=== PATIENT | male | born 1945 | race Caucasian/White ===

== ENCOUNTER 2020-11-19 20:46 | Observation (INO) ==
--- NOTE | 2020-11-19 21:27 | DR.EXTPAIN ---
HPI Time seen Time Seen by Provider: 11/19/20 21:00 PCP Primary Care Physician: DR.MISTY HERNANDEZ HPI Comment HPI Comment: 74 yo m w/ pmh htn and dmII presents w/ left sided leg weakness onset 11 hrs [employer]. Patient reports approx 11 hr hx of gradual onset left leg weakness. Difficulty ambulating secondary to this weakness. No ac use at home. No hx of trauma/ injury. Denies hx of prev cva/ tia. Denies WALKER, visual/ speech changes, other numbness/ weakness, aphasia. n/v, CP/ sob, f/c. Complaint/Symptoms Chief Complaint:: UNABLE TO WALK STRAIGHT, STUMBING, PAIN TO LEFT NECK Nurses notes reviewed Nurses Notes Review: Yes Source History Provided: Patient and Significant Other Mode of arrival Mode of Arrival: Ambulatory Timing Onset of Chief Complaint: 11/19/20 Context History of: None PMH PMH Past Medical History: Yes Past Medical History: Diabetes and Hypertension Past Surgical History: No Family History History of Family Medical Conditions: Yes Family Medical History: Diabetes Mellitus, Cancer and Hypertension Family Medical History Comment: MOTHER-BREAST CANCER SISTER-BREAST CA Social History Does patient currently use any type of tobacco product: No Have you used tobacco products in the last 12 months: No Type of Tobacco Use: None Does any household member use tobacco: No Alcohol Use: None Do you use any recreational Drugs:: No Lives With: Family Lives Where: Home Infectious screening In the last 2 months have you had wt loss of >10#?: NO Have you had fever, night sweats or hemotysis?: No Have you traveled outside the country in the last 6 months?: No Isolation: Standard ROS Review of Systems Constitutional: No Symptoms Reported Eyes: No Symptoms Reported ENTM: No Symptoms Reported Respiratoy: No Symptoms Reported Cardiovascular: No Symptoms Reported Gastrointestinal/Abdominal: No Symptoms Reported Genitourinary: No Symptoms Reported Neurological: Weakness and Problems Walking; negative Headache, Numbness, Pre- existing Deficit, Seizure, Tingling and Tremors Musculoskeletal: No Symptoms Reported Integumentary: No Symptoms Reported Hematologic/Lymphatic: No Symptoms Reported Endocrine: No Symptoms Reported Psychiatric: No Symptoms Reported All Other Systems: Reviewed and Negative PE Vital Signs Vitals: Temperature 37.0 C Pulse Rate 79 Respiratory Rate 20 Blood Pressure 157/71 O2 Sat by Pulse Oximetry 98 General Limitations: No Limitations General Appearance: Alert and In No Apparent Distress Head Head Exam: Normal Inspection Eyes Eye exam: Normal Appearance ENT ENT Exam: Normal Exam Neck Neck Exam: Normal Inspection Chest Chest Inspection: Normal Inspection Respiratory Respiratory Exam: Normal Lung Sounds Bilat Cardiovascular Cardiovascular Exam: Regular Rate and Normal Rhythm Abdominal Exam Abdominal Exam: Normal Inspection, Normal Bowel Sounds and Soft Extremities Extremities Exam: Normal Inspection Back Back Exam: Normal Inspection Neurological Neurological Exam: Alert, Oriented X3, CN II-XII Intact and Other (no aphasia or dysarthira. cn 2-12 grossly intact. a/o x 3. no pronator drift. no facial droop. no cerebellar defecits. nih ss 0. ); negative Motor Sensory Deficit Psychiatric Psychiatric Exam: Normal Affect and Normal Mood Skin Skin Exam: Warm, Dry, Intact and Normal Color MDM Differential Diagnosis Differential Diagnosis: Other (cva, ich, tia, neuropathy ) COURSE Treatment Treatment: 74 yom w/ LLE x 11 hrs. NIH SS 0 on arrival to ed. Not a tpa canidate d/t nih ss as well as arriving outside of time window. CT of head w/ microvascular ischemic ahnges. ASA loaded. 40 mg lipitor given. Remain neurologically stable. d/w Dr cr whom agrees to admit. Education/Counseling Education/Counseling: Patient and Family Educated On: Treatment, Diagnosis, Prognosis and Needs for Follow Up ROR Labs Reviewed Laboratory Results Reviewed?: Yes Result Diagrams: 11/19/20 21:55 11/19/20 21:55 Laboratory: WBC 5.6 X10^3/uL (3.6-10.0) 11/19/20 21:55 RBC 3.60 X10^6/uL (4.7-6.0) L 11/19/20 21:55 Hgb 11.4 g/dL (13.5-18.0) L 11/19/20 21:55 Hct 32.7 % (42.0-54.0) L 11/19/20 21:55 MCV 90.7 fL (80.0-100.0) 11/19/20 21:55 MCH 31.7 pg (27.0-34.0) 11/19/20 21:55 MCHC 34.9 g/dL (33.0-35.0) 11/19/20 21:55 RDW 13.0 % (11.6-16.5) 11/19/20 21:55 Plt Count 144 X10^3/uL (150.0-450.0) L 11/19/20 21:55 MPV 8.9 fL (7.4-11.0) 11/19/20 21:55 Neut % (Auto) 65.1 % (42.0-75.0) 11/19/20 21:55 Lymph % (Auto) 19.6 % (21.0-51.0) L 11/19/20 21:55 [place] % (Auto) 10.1 % (0.0-13.0) 11/19/20 21:55 Eos % (Auto) 4.6 % (0.9-2.9) H 11/19/20 21:55 Baso % (Auto) 0.6 % (0.2-1.0) 11/19/20 21:55 Neut # (Auto) 3.7 x10^3/uL (2.2-4.8) 11/19/20 21:55 Lymph # (Auto) 1.1 X10^3/uL (1.3-2.9) L 11/19/20 21:55 [place] # (Auto) 0.6 x10^3/uL (0.3-0.8) 11/19/20 21:55 Eos # (Auto) 0.3 x10^3/uL (0.0-0.2) H 11/19/20 21:55 Baso # (Auto) 0.0 X10^3/uL (0.0-0.1) 11/19/20 21:55 Absolute Nucleated RBC 0.0 /100WBC 11/19/20 21:55 PT 14.5 SECONDS (11.8-14.3) 11/19/20 21:55 INR Target Range - 11/19/20 21:55 INR 1.16 (0.8-1.3) 11/19/20 21:55 APTT 31.8 SECONDS (22.9-36.5) 11/19/20 21:55 PTT Comment - 11/19/20 21:55 Sodium 145 mmol/L (136-145) 11/19/20 21:55 Corrected Sodium 145 mmol/L (136-145) 11/19/20 21:55 Potassium 4.0 mmol/L (3.5-5.1) 11/19/20 21:55 Chloride 110 mmol/L (98-107) H 11/19/20 21:55 Carbon Dioxide 25.9 mmol/L (21-32) 11/19/20 21:55 BUN 27 mg/dL (7-18) H 11/19/20 21:55 Creatinine 1.15 mg/dL (0.70-1.30) 11/19/20 21:55 Est GFR (MDRD) Af Amer > 60 (>60) 11/19/20 21:55 Est GFR (MDRD) Non-Af > 60 (>60) 11/19/20 21:55 Glucose 120 mg/dL (65-99) H 11/19/20 21:55 Calcium 8.9 mg/dL (8.5-10.1) 11/19/20 21:55 Troponin I < 0.02 ng/mL (0-1.5) 11/19/20 21:55 XRAY XRAY Interpreted by: Radiologist X-ray Results: ct head: chronic microvascular ischemic changes cxr: no infiltrate, no hemo/pneumothorax EKG Rate: 66 [place]: Normal Rhythm: NSR Block: None Hypertrophy: None ST: Normal Opioid Opioid Risk Tool Total: 0 Total Score Risk Category: Low Risk Copyright: Winston MARTIN predicting aberrant behaviors Diagnosis Discharge Problem: Brain TIA Instructions Forms: Patient Portal Social Distancing
[2020-11-19 22:06] LABS: BASOPHILS % (AUTO) 0.6 % (0.2-1.0); EOSINOPHILS # (AUTO) 0.3 x10^3/uL (0.0-0.2); EOSINOPHILS % (AUTO) 4.6 % (0.9-2.9); HEMATOCRIT 32.7 % (42.0-54.0); HEMOGLOBIN 11.4 g/dL (13.5-18.0); LYMPHOCYTES # (AUTO) 1.1 X10^3/uL (1.3-2.9); LYMPHOCYTES % (AUTO) 19.6 % (21.0-51.0); MEAN CORPUSCULAR HEMOGLOBIN 31.7 pg (27.0-34.0); MEAN CORPUSCULAR HGB CONC 34.9 g/dL (33.0-35.0); MEAN CORPUSCULAR VOLUME 90.7 fL (80.0-100.0); MEAN PLATELET VOLUME 8.9 fL (7.4-11.0); MONOCYTES # (AUTO) 0.6 x10^3/uL (0.3-0.8); MONOCYTES % (AUTO) 10.1 % (0.0-13.0); NEUTROPHILS # (AUTO) 3.7 x10^3/uL (2.2-4.8); NEUTROPHILS % (AUTO) 65.1 % (42.0-75.0); PLATELET COUNT 144 X10^3/uL (150.0-450.0); WHITE BLOOD COUNT 5.6 X10^3/uL (3.6-10.0)
[2020-11-19 22:17] LABS: BLOOD UREA NITROGEN 27 mg/dL (7-18); CALCIUM 8.9 mg/dL (8.5-10.1); CARBON DIOXIDE 25.9 mmol/L (21-32); CHLORIDE 110 mmol/L (98-107); COR NA(FOR HYPERGLY) 145 mmol/L (136-145); CREATININE 1.15 mg/dL (0.70-1.30); SODIUM 145 mmol/L (136-145); TROPONIN I < 0.02 ng/mL (0-1.5); eGFR NON BLACK RACES > 60 (>60)
--- NOTE | 2020-11-19 22:27 | CT ---
[id number] male with weaknessSTUDYBRAIN W/O CONCOMPARISONNoneTECHNIQUEAxial imaging was performed from the vertex to the base of skull without intravenous contrast being administered. Sagittal and coronal reformations were generated. Automated exposure control techniques were used with this exam.FINDINGSGeneralized age related atrophic changes are present. However there is no evidence of intracranial hemorrhage or extracerebral fluid collections. Ventricles are symmetric in size and position with no mass effect seen. Patchy low density is present in a periventricular white matter distribution, consistent with chronic small vessel ischemia. On the bone windows, no acute bony abnormality is seen. Visualized aspect of the paranasal sinuses and mastoid air cells are clear.IMPRESSION1. No acute intracranial abnormality is seen on this exam.2. Age related atrophic changes and findings of chronic small vessel ischemia are incidental findingsElectronically signed by: CAMELIA SANTIAGO (Nov 19, 2020 22:25:15)
[2020-11-19] MEDS ORDERED: ASPIRIN PO ONE (22:29)
--- NOTE | 2020-11-19 22:31 | RAD ---
STUDY: FRONTAL VIEW CHESTCOMPARISON: NoneHISTORY: WEAKNESSFINDINGS:No focal consolidation is seen.The heart size is within normal limits.The mediastinum is unremarkable.There is no evidence of pleural effusion or gross pneumothorax.The trachea is midline.IMPRESSION:1. No focal consolidation is seen.2. The heart size is normal.Electronically signed by: Vishnu Arboleda (Nov 19, 2020 22:30:11)
[2020-11-19] MEDS ORDERED: LIPITOR TAB 80 MG ONE (22:39)
[2020-11-19] MEDS ORDERED: ASPIRIN ONE (22:39)
[2020-11-19] MEDS: LIPITOR TAB 40 MG PO SCH (22:43)
[2020-11-20 01:55] VITALS: BMI 23.8
[2020-11-20] MEDS: LIPITOR TAB 40 MG PO SCH (09:09)
[2020-11-20] MEDS ORDERED: GLUCOPHAGE XR 24-HR PO SCH (10:00)
[2020-11-20] MEDS ORDERED: ZESTRIL TAB 10 MG PO SCH (10:00)
[2020-11-20] MEDS ORDERED: ASPIRIN PO SCH (10:00)
[2020-11-20] MEDS ORDERED: ACTOS PO SCH (10:00)
[2020-11-20] MEDS ORDERED: NORVASC TAB 10 MG PO SCH (14:00)
[2020-11-20 14:44] VITALS: BP 148/74
== END 2020-11-20 15:15 | disposition home or self-care (01) ==
LOC: ER 20:53 → MED/SURG 20:53
PROVIDERS: ADMIT Obstetrics & Gynecology Obstetrics; ATTEND Obstetrics & Gynecology Obstetrics
DX: R26.2 Difficulty in walking, not elsewhere classified; G45.9 Transient cerebral ischemic attack, unspecified; M62.81 Muscle weakness (generalized); W18.39XA Other fall on same level, initial encounter; I10 Essential (primary) hypertension; E11.65 Type 2 diabetes mellitus with hyperglycemia; Z20.822 Contact with and (suspected) exposure to COVID-19